=== PATIENT | male | born 1965 | race African-American/Black ===

== ENCOUNTER 2016-06-16 03:23 | Emergency (ER) | payer MEDICARE, OTHER ==
[2016-06-16] MEDS ORDERED: IPRATROPIUM/ALBUTEROL SULFATE 3 ML AMPUL.NEB NEB ONE (04:08)
--- NOTE | 2016-06-16 04:09 | ED Physician Documentation ---
General Adult - HISTORIAN Historian: patient - HPI Stated Complaint: fever, dizzy, h/a Chief Complaint: General Adult Onset: days ago (2) Timing: still present Severity: moderate Further Comments: yes (Pt is a 50 yo male with cough, dizziness, malaise x 2 days. Pt was seen by pcp and started on amoxicillin, but is not feeling better. ) - ROS CONST: other (malaise) EYES/ENT: none CVS/RESP: cough GI/: none MS/SKIN/LYMPH: none NEURO/PSYCH: headache - PAST HX Past History: other (asthma, DM, GERD, HTN) Allergies/Adverse Reactions: Allergies Allergy/AdvReac Type Severity Reaction Status Date / Time No Known Allergies Allergy Verified 06/16/16 03:44 Home Medications: Ambulatory Orders Medication Instructions Recorded Lisinopril [Lisinopril] 20 tab PO BID 07/26/12 Metformin HCl [GLUCOPHAGE] 500 mg PO BID 07/26/12 Fenofibrate [Fenofibrate] 145 mg PO DAILY 09/21/13 Albuterol Sulfate [Proair HFA] 1 unit INH DIRECTED 09/17/14 Montelukast Sodium [Singulair] 1 tab PO DAILY 09/17/14 Tiotropium [place] [Spiriva] 1 puff INH DIRECTED 09/17/14 Allopurinol [Zyloprim] 450 mg PO DAILY u2 07/11/15 Fluticasone/Salmeterol [Advair 1 each IH BID 07/11/15 500-50 Diskus] Gabapentin [Neurontin] 300 mg PO TID 01/19/16 Omeprazole [Prilosec] 40 mg PO 01/19/16 traMADol HCL [Ultram] 50 mg PO Q6H #30 tablet 05/01/16 Azithromycin [Zithromax] 250 mg PO DAILY #5 tablet 06/16/16 - SOCIAL HX Smoking History: cigarettes - FAMILY HX Family History: No - VITAL SIGNS Vital Signs: Vital Signs Temp Pulse Resp BP Pulse Ox 99.6 F 99 H 20 140/89 94 06/16/16 03:23 06/16/16 03:23 06/16/16 03:23 06/16/16 03:23 06/16/16 03:23 - REVIEWED ASSESSMENTS Nursing Assessment Reviewed: Yes Vitals Reviewed: Yes Progress - Progress Progress: NS 1 L IVF x 2 Duoneb HFN Toradol 30 mg IV Azithromycin 500 mg po x 1 Rx Azithromycin 250 mg po qd x 5 days. - EKG/XRAY/CT XRAY: chest (no acute process) ED Results Lab/Radiology - Orders Orders: ED Orders Category Date Time Status Place Saline Lock/IV Now Care 06/16/16 04:07 Active CHEST 2 VIEW [CHEST P.A.&LAT 2 VIEWS] [RAD] Stat Exams 06/16/16 Ordered CBC/PLATELET/DIFF Routine Lab 06/16/16 Ordered CMP Routine Lab 06/16/16 Ordered 0.9 % Sodium Chloride [Normal Saline] 1,000 ml Med 06/16/16 04:07 Active IV Q1H Ipratropium/Albuterol Sulfate [Duoneb] Med 06/16/16 04:07 Once 3 ml NEB NOW ONE General Adult Physical Exam - PHYSICAL EXAM GENERAL APPEARANCE: mild distress EENT: eye inspection normal, ENT inspection normal, pharynx normal NECK: normal inspection, supple RESPIRATORY: wheezes CVS: reg rate & rhythm, heart sounds normal ABDOMEN: soft, no organomegaly, normal bowel sounds BACK: normal inspection, no CVA tenderness SKIN: warm/dry, normal color EXTREMITIES: non-tender, normal range of motion, no evidence of injury NEURO: oriented X3, motor nml, sensation nml Discharge Clincal Impression: Hyponatremia URI (upper respiratory infection) Qualifiers: URI type: unspecified URI Qualified Code(s): J06.9 - Acute upper respiratory infection, unspecified Prescriptions: Azithromycin [Zithromax] 250 mg PO DAILY #5 tablet Referrals: Tiburcio Chaparro DO [Primary Care Provider] - Home Medications: Ambulatory Orders Lisinopril [Lisinopril] 20 tab PO BID 07/26/12 Metformin HCl [GLUCOPHAGE] 500 mg PO BID 07/26/12 Fenofibrate [Fenofibrate] 145 mg PO DAILY 09/21/13 Albuterol Sulfate [Proair HFA] 1 unit INH DIRECTED 09/17/14 Montelukast Sodium [Singulair] 1 tab PO DAILY 09/17/14 Tiotropium [place] [Spiriva] 1 puff INH DIRECTED 09/17/14 Allopurinol [Zyloprim] 450 mg PO DAILY u2 07/11/15 Fluticasone/Salmeterol [Advair 500-50 Diskus] 1 each IH BID 07/11/15 Gabapentin [Neurontin] 300 mg PO TID 01/19/16 Omeprazole [Prilosec] 40 mg PO 01/19/16 traMADol HCL [Ultram] 50 mg PO Q6H #30 tablet 05/01/16 Azithromycin [Zithromax] 250 mg PO DAILY #5 tablet 06/16/16 Condition: Good Disposition: 01 HOME, SELF-CARE Decision to Admit: NO Decision Time: 06:29
[2016-06-16] MEDS: IPRATROPIUM/ALBUTEROL SULFATE 3 ML AMPUL.NEB NEB ONE (04:20)
[2016-06-16] MEDS: 0.9 % SODIUM CHLORIDE 1,000 ML IV ONE ×2 (04:30→05:53)
[2016-06-16] MEDS ORDERED: KETOROLAC TROMETHAMINE 30 MG/1ML VIAL ONE (04:51)
[2016-06-16] MEDS: KETOROLAC TROMETHAMINE 30 MG/1ML VIAL IVP ONE (04:55)
[2016-06-16 05:11] LABS: BASOPHILS % 0.4 (0.0-1.5); EOSINOPHILS % 1.3 % (0.0-6.8); LYMPHOCYTES # 0.5 # k/uL (0.6-4.0); MEAN CORPUSCULAR HEMOGLOBIN 27.2 pg (28.0-34.0); MONOCYTES # 0.4 # k/uL (0.0-0.9); MONOCYTES % 9.6 % (0.0-11.0); NEUTROPHILS # 3.2 # k/uL (1.4-7.7)
[2016-06-16 05:22] LABS: eGFR (African) > 60; eGFR (Non-African) > 60
[2016-06-16] MEDS: AZITHROMYCIN 250 MG TABLET PO ONE (06:38)
[2016-06-16 07:06] VITALS: BP 140/82
--- NOTE | 2016-06-16 08:00 | Diagnostic Imaging Report ---
[facility] [address] [facility].[address] [address] ~ ~ ~ ~ Report Submission Date: Jun 16, 2016 5:01:17 AM REPAIR DEPARTMENT SUPERVISOR Patient ~ Study Name: CHI GRAHAM ~ Date: Jun 16, 2016 4:42:11 AM REPAIR DEPARTMENT SUPERVISOR ~ Modality Type: CR Gender: M ~ Description: CHEST : 63 ~ Institution: [facility] Physician: ISIS CALHOUN ~ ~ ~ ~ Chest - two views Clinical history: ~Productive cough. ~Shortness of breath and dizziness. Findings: ~Examination of the chest in PA and lateral views with comparison to examination of 09/17/2014 demonstrates lungs to be hyperinflated but clear. ~ Cardiovascular and mediastinal silhouettes are stable. ~The bony thorax is intact. ~The lungs are mildly hyperinflated. Impression: 1. ~Hyperinflation. 2. ~No active disease. 3. ~No significant change. ~ Electronically signed on Jun 16, 2016 5:01:17 AM REPAIR DEPARTMENT SUPERVISOR by: Primo SCHULER
== END 2016-06-16 06:42 | disposition home or self-care (01) ==
LOC: ED 03:23
DX: J06.9 Acute upper respiratory infection, unspecified (principal); E87.1 Hypo-osmolality and hyponatremia
CPT/HCPCS: 71020; 80053; 85025; J1885; J7030; 96361; 96374; 99283; S1016

== ENCOUNTER 2016-09-06 18:47 | Emergency (ER) | payer MEDICARE, OTHER ==
[2016-09-06] MEDS ORDERED: IPRATROPIUM/ALBUTEROL SULFATE 3 ML AMPUL.NEB NEB ONE ×2 (19:02→19:04)
[2016-09-06 21:06] LABS: BASOPHILS % 0.7 (0.0-1.5); EOSINOPHILS % 6.2 % (0.0-6.8); LYMPHOCYTES # 1.4 # k/uL (0.6-4.0); MEAN CORPUSCULAR HEMOGLOBIN 27.3 pg (28.0-34.0); MONOCYTES # 0.3 # k/uL (0.0-0.9); MONOCYTES % 5.7 % (0.0-11.0); NEUTROPHILS # 3.6 # k/uL (1.4-7.7)
--- NOTE | 2016-09-06 21:10 | ED Physician Documentation ---
Upper Respiratory Symptoms - HISTORIAN Historian: patient - HPI Chief Complaint: Cough/ Upper Respiratory Onset: days ago Context: denies: recent foreign travel, insect bite(s), tick(s), recent chemotherapy Associated Symptoms: fever, chills, sinus drainage, productive cough, hurts to breathe. denies: sweating, sore throat Further Comments: yes (51 year old male patient presents with complaint of productive cough, congestion) - ROS CONST/EYES: denies: weakness, eye redness CVS/RESP: shortness of breath. denies: chest pain, palpitations LYMPH: denies: leg swelling, rash GI/: none NEURO/PSYCH: denies: fainting, dizziness MS/SKIN: denies: muscle aches - PAST HX Lung Disease: COPD PE Risk Factors: hypertension Other History: diabetes Type 2, other (HLD, NIDDM) Allergies/Adverse Reactions: Allergies Allergy/AdvReac Type Severity Reaction Status Date / Time No Known Allergies Allergy Verified 06/16/16 03:44 Home Medications: Ambulatory Orders Medication Instructions Recorded Lisinopril [Lisinopril] 20 tab PO BID 07/26/12 Metformin HCl [GLUCOPHAGE] 500 mg PO BID 07/26/12 Fenofibrate [Fenofibrate] 145 mg PO DAILY 09/21/13 Albuterol Sulfate [Proair HFA] 1 unit INH DIRECTED 09/17/14 Montelukast Sodium [Singulair] 1 tab PO DAILY 09/17/14 Tiotropium [place] [Spiriva] 1 puff INH DIRECTED 09/17/14 Allopurinol [Zyloprim] 450 mg PO DAILY u2 07/11/15 Fluticasone/Salmeterol [Advair 1 each IH BID 07/11/15 500-50 Diskus] Gabapentin [Neurontin] 300 mg PO TID 01/19/16 Omeprazole [Prilosec] 40 mg PO 01/19/16 traMADol HCL [Ultram] 50 mg PO Q6H #30 tablet 05/01/16 Azithromycin [Zithromax] 250 mg PO DAILY #5 tablet 06/16/16 - SOCIAL HX Smoking History: cigarettes - FAMILY HX Family History: cardiac disease - VITAL SIGNS Vital Signs: Vital Signs Temp Pulse Resp BP Pulse Ox 140/82 06/16/16 06:47 - REVIEWED ASSESSMENTS Nursing Assessment Reviewed: Yes Vitals Reviewed: Yes Progress - Progress Progress: Duoneb given on arrival Reviewed lab and xray results with patient. Treated with solumedrol and azithromycin in ER. Added duonebs q6h, continue prednisone. Patient states he has plenty of albuterol. albuterol neb given at discharge. ED Results Lab/Radiology - Lab Results Lab Results: Lab Results 09/06/16 09/06/16 21:00 21:00 WBC 5.80 K/ul K/ul (4.00-12.00) RBC 4.69 M/ul M/ul (3.90-5.20) Hgb 12.8 g/dL g/dL (12.0-18.0) Hct 39.9 % % (37.0-53.0) MCV 85.2 fl fl (80.0-100.0) MCH 27.3 pg L pg (28.0-34.0) MCHC 32.0 g/dL g/dL (30.0-36.0) RDW 15.1 % H % (11.3-14.3) Plt Count 301 K/mm3 K/mm3 (130-400) Neut % (Auto) 61.6 % % (39.0-79.0) Lymph % (Auto) 24.4 % % (16.0-50.0) [place] % (Auto) 5.7 % % (0.0-11.0) Eos % (Auto) 6.2 % % (0.0-6.8) Baso % (Auto) 0.7 (0.0-1.5) Neut # 3.6 # k/uL # k/uL (1.4-7.7) Lymph # 1.4 # k/uL # k/uL (0.6-4.0) [place] # 0.3 # k/uL # k/uL (0.0-0.9) Eos # 0.4 # k/uL # k/uL (0.0-0.6) Baso # 0.0 # k/uL # k/uL (0.0-0.5) Reactive Lymphs % 1.4 % % (0.0-5.0) Reactive Lymphs # 0.1 # k/uL # k/uL (0.0-0.8) Sodium 142 mmol/L mmol/L (136-145) Potassium 3.7 mmol/L mmol/L (3.5-5.0) Chloride 103 mmol/L mmol/L (98-110) Carbon Dioxide 33 mmol/L H mmol/L (20-32) BUN 8 mg/dL L mg/dL (10-26) Creatinine 1.1 mg/dL mg/dL (0.4-1.5) Est GFR ( Amer) > 60 (60 - ) Est GFR (Non-Af Amer) > 60 (60 - ) Glucose 118 mg/dL H mg/dL (70-99) Calcium 9.3 mg/dL mg/dL (8.5-10.5) Total Bilirubin 0.3 mg/dL mg/dL (0.2-1.2) AST 21 U/L U/L (0-41) ALT 18 U/L U/L (0-45) Alkaline Phosphatase 50 U/L U/L (46-116) Total Protein 7.7 g/dL g/dL (6.0-8.5) Albumin 4.4 g/dL g/dL (3.0-5.5) - Radiology Radiology Impressions: Chest, PA and lateral, 3 images History: Cough, dyspnea Findings: No infiltrate, effusion or pneumothorax is present. Heart size, mediastinum and pulmonary vascularity are normal. The lungs are hyperinflated. 16 June 2016, no significant change has occurred. Impression: No active disease. Electronically signed on Sep 06, 2016 7:34:15 PM CDT by: Harry Hussein - Orders Orders: ED Orders Category Date Time Status Continuous Pulse Oximetry Q30M Care 09/06/16 19:[address] Saline Lock/IV NOW Care 09/06/16 19:03 Active CHEST 2 VIEW [CHEST P.A.&LAT 2 VIEWS] [RAD] Stat Exams 09/06/16 Completed CBC/PLATELET/DIFF Stat Lab 09/06/16 21:00 Completed CMP Stat Lab 09/06/16 21:00 Completed INFLUENZA A&B Stat Lab 09/06/16 20:40 Ordered Albuterol Sulfate [Ventolin] Med 09/06/16 21:20 Discontinued 2.5 mg NEB NOW ONE Azithromycin [Zithromax] Med 09/06/16 21:12 Discontinued 500 mg PO NOW ONE Ipratropium/Albuterol Sulfate [Duoneb] Med 09/06/16 19:02 Discontinued 3 ml NEB .STK-MED ONE Ipratropium/Albuterol Sulfate [Duoneb] Med 09/06/16 19:04 Discontinued 3 ml NEB NOW ONE methylPREDNISolone SOD SUCC [Solu-MEDROL] Med 09/06/16 21:11 Discontinued 62.5 mg IVP NOW ONE Upper Respiratory Symptoms - EXAM General Appearance: moderate distress EENT: eyes nml inspection, nml ENT inspection, lids & conjunct. nml, PERRL, ear nml, nose nml, pharynx nml, airway nml Respiratory: no resp. 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 Increase your albuterol nebs to every 4 hours as needed at home. Tomorrow you will start a new neb with 2 medication, use them every 6 hours. Continue the albuterol between the ipratropium/albuterol nebs Start your antibiotic and steroid tomorrow. Return to the Er if your symptoms become worse. Home Medications: Ambulatory Orders Lisinopril [Lisinopril] 20 tab PO BID 07/26/12 Metformin HCl [GLUCOPHAGE] 500 mg PO BID 07/26/12 Fenofibrate [Fenofibrate] 145 mg PO DAILY 09/21/13 Albuterol Sulfate [Proair HFA] 1 unit INH DIRECTED 09/17/14 Montelukast Sodium [Singulair] 1 tab PO DAILY 09/17/14 Tiotropium [place] [Spiriva] 1 puff INH DIRECTED 09/17/14 Allopurinol [Zyloprim] 450 mg PO DAILY u2 07/11/15 Fluticasone/Salmeterol [Advair 500-50 Diskus] 1 each IH BID 07/11/15 Gabapentin [Neurontin] 300 mg PO TID 01/19/16 Omeprazole [Prilosec] 40 mg PO 01/19/16 traMADol HCL [Ultram] 50 mg PO Q6H #30 tablet 05/01/16 Azithromycin [Zithromax] 250 mg PO DAILY #5 tablet 06/16/16 Condition: Stable Disposition: 01 HOME, SELF-CARE Decision to Admit: NO Decision Time: 21:25
[2016-09-06] MEDS ORDERED: methylPREDNISolone SOD SUCC 125 MG/2 ML VIAL IVP ONE (21:11)
[2016-09-06] MEDS ORDERED: AZITHROMYCIN 250 MG TABLET PO ONE (21:12)
[2016-09-06 21:20] LABS: eGFR (African) > 60; eGFR (Non-African) > 60
[2016-09-06] MEDS ORDERED: ALBUTEROL SULFATE 2.5 MG/3 ML AMPUL.NEB NEB ONE (21:20)
--- NOTE | 2016-09-06 22:40 | Diagnostic Imaging Report ---
BREEZY ROBLERO (LISBETH) - ER~ [facility] [address] [address] ~ ~ ~ ~ Report Submission Date: Sep 06, 2016 7:34:15 PM CDT Patient ~ Study Name: CHI GRAHAM ~ Date: Sep 06, 2016 7:11:01 PM CDT ~ Modality Type: CR Gender: M ~ Description: CHEST : 63 ~ Institution: [facility] Physician: BREEZY ROBLERO) - KRISTINA ~ ~ ~ ~ Chest, PA and lateral, 3 images History: Cough, dyspnea Findings: No infiltrate, effusion or pneumothorax is present. Heart size, mediastinum and pulmonary vascularity are normal. The lungs are hyperinflated. 16 June 2016, no significant change has occurred. Impression: No active disease. ~ Electronically signed on Sep 06, 2016 7:34:15 PM CDT by: Harry SCHULER
[2016-09-07 03:45] VITALS: BP 135/81
== END 2016-09-06 21:34 | disposition home or self-care (01) ==
LOC: ED 18:47
DX: J44.1 Chronic obstructive pulmonary disease with (acute) exacerbation (principal)
CPT/HCPCS: 71020; 80053; 85025; 87400; 96374; 99283; 99284; J2930; S1016

== ENCOUNTER 2016-12-07 18:30 | Emergency (ER) | payer MEDICARE, OTHER ==
[2016-12-07] MEDS ORDERED: BACLOFEN 10 MG TABLET PO ONE (18:51)
--- NOTE | 2016-12-07 18:56 | ED Physician Documentation ---
Low Back Pain - HISTORIAN Historian: patient - HPI Chief Complaint: Low Back Pain/ Injury History: history of chronic pain:, back pain Onset: days ago Duration: worse Recent Injury: No Context: turning (new mattress) Where: home Severity: severe Quality: sharp, similar- prior back pain Worsened By:: upright position, movement to RT flexion, movement to LT flexion Relieved By: nothing Further Comments: yes (51 year old male patient presents with neck pain, left shoulder pain, and right low back pain. Reports chronic pain worse after rearranaging bedroom. Has not taken any OTC medications. Requested antibiotic for cough.) - ROS CONST: no problems CVS/RESP: none EYES/ENT: none MS/SKIN/LYMPH: none Neuro/Psych: none GI/: denies: abdominal pain - PAST HX Past History: back pain Other History: diabetes Type 2, hypertension, other (COPD, HLD, ) Allergies/Adverse Reactions: Allergies Allergy/AdvReac Type Severity Reaction Status Date / Time No Known Allergies Allergy Verified 09/07/16 03:48 Home Medications: Ambulatory Orders Medication Instructions Recorded Lisinopril [Lisinopril] 20 tab PO BID 07/26/12 Metformin HCl [GLUCOPHAGE] 500 mg PO BID 07/26/12 Fenofibrate [Fenofibrate] 145 mg PO DAILY 09/21/13 Albuterol Sulfate [Proair HFA] 1 unit INH DIRECTED 09/17/14 Montelukast Sodium [Singulair] 1 tab PO DAILY 09/17/14 Tiotropium [place] [Spiriva] 1 puff INH DIRECTED 09/17/14 Allopurinol [Zyloprim] 450 mg PO DAILY u2 07/11/15 Fluticasone/Salmeterol [Advair 1 each IH BID 07/11/15 500-50 Diskus] Gabapentin [Neurontin] 300 mg PO TID 01/19/16 Omeprazole [Prilosec] 40 mg PO D 01/19/16 traMADol HCL [Ultram] 50 mg PO Q6H #30 tablet 05/01/16 - SOCIAL HX Smoking History: cigarettes - FAMILY HX Family History: denies: none - VITAL SIGNS Vital Signs: Vital Signs Temp Pulse Resp BP Pulse Ox 135/81 09/06/16 21:50 - REVIEWED ASSESSMENTS Nursing Assessment Reviewed: Yes Vitals Reviewed: Yes ED Results Lab/Radiology - Orders Orders: ED Orders Category Date Time Status Baclofen [Lioresal] Med 12/07/16 18:51 Discontinued 10 mg PO NOW ONE Baclofen [Lioresal] Med 12/07/16 18:51 Discontinued 10 mg PO NOW ONE Ketorolac Tromethamine [Toradol] Med 12/07/16 18:45 Discontinued 60 mg IM NOW ONE Low Back Pain/Injury - Physical Exam General Appearance: mild distress EENT: eye inspection normal, ABNER Resp/CVS: chest non-tender, breath sounds nml, heart sounds nml, no resp. distress, lungs clear, reg. rate & rhythm, other (no cough in ER) Abdomen: non-tender, no organomegaly, no pulsatile mass Back: muscle spasm (right paraspinous muscles). No: vertebral point-tendernes Straight Leg Raising: Positive Right Neuro/Psych: oriented x3, motor nml, sensation nml, bilat. 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 Discharge Clincal Impression: Low back pain Qualifiers: Chronicity: acute Back pain laterality: right Sciatica presence: without sciatica Qualified Code(s): M54.5 - Low back pain Referrals: Aye Lange MD [Primary Care Provider] - 2 Days Home Medications: Ambulatory Orders Lisinopril [Lisinopril] 20 tab PO BID 07/26/12 Metformin HCl [GLUCOPHAGE] 500 mg PO BID 07/26/12 Fenofibrate [Fenofibrate] 145 mg PO DAILY 09/21/13 Albuterol Sulfate [Proair HFA] 1 unit INH DIRECTED 09/17/14 Montelukast Sodium [Singulair] 1 tab PO DAILY 09/17/14 Tiotropium [place] [Spiriva] 1 puff INH DIRECTED 09/17/14 Allopurinol [Zyloprim] 450 mg PO DAILY u2 07/11/15 Fluticasone/Salmeterol [Advair 500-50 Diskus] 1 each IH BID 07/11/15 Gabapentin [Neurontin] 300 mg PO TID 01/19/16 Omeprazole [Prilosec] 40 mg PO D 01/19/16 traMADol HCL [Ultram] 50 mg PO Q6H #30 tablet 05/01/16 Condition: Stable Disposition: 01 HOME, SELF-CARE Decision to Admit: NO Decision Time: 18:55
[2016-12-07] MEDS: KETOROLAC TROMETHAMINE 60 MG/2 ML VIAL IM ONE (19:05)
[2016-12-07] MEDS: BACLOFEN 10 MG TABLET PO ONE (19:11)
[2016-12-07 20:06] VITALS: BP 146/90
== END 2016-12-07 19:05 | disposition home or self-care (01) ==
LOC: ED 18:30
DX: M54.5 Low back pain (principal)
CPT/HCPCS: 96372; 99283; J1885

== ENCOUNTER 2017-02-27 18:12 | Emergency (ER) | payer MEDICARE, OTHER ==
--- NOTE | 2017-02-27 19:19 | Diagnostic Imaging Report ---
ANÍBAL ABDALLA [facility] [address] [facility].[address] [address] Report Submission Date: Feb 27, 2017 7:16:09 PM CDT Patient Study Name: CHI GRAHAM Date: Feb 27, 2017 6:51:02 PM CDT Modality Type: CR Gender: M Description: LOWER EXTREMITY : 63 Institution: [facility] Physician: ANÍBAL ABDALLA Right knee, AP, lateral and sunrise views History: Knee pain, injury Findings: Joint space narrowing is present in the medial, lateral and patellofemoral compartments. There is spur formation at the distal femur, proximal tibia and patella. There is no fracture, dislocation or abnormal bone destruction. Impression: Osteoarthritis but no acute abnormality. Electronically signed on Feb 27, 2017 7:16:09 PM CDT by: Harry SCHULER
--- NOTE | 2017-02-27 19:20 | Diagnostic Imaging Report ---
ANÍBAL ABDALLA [facility] [address] [facility].[address] [address] Report Submission Date: Feb 27, 2017 7:14:42 PM CDT Patient Study Name: CHI GRAHAM Date: Feb 27, 2017 6:52:12 PM CDT Modality Type: CR Gender: M Description: SPINE : 63 Institution: [facility] Physician: ANÍBAL ABDALLA Lumbar spine, AP and lateral, 3 images History: Low back pain Findings: No fracture, subluxation or abnormal bone production or destruction is identified. The vertebral bodies and intervertebral disc spaces are of normal height. Anterior osteophyte formation is noted at all levels. Impression: Degenerative change but no acute abnormality. Electronically signed on Feb 27, 2017 7:14:42 PM CDT by: Harry SCHULER
--- NOTE | 2017-02-27 19:43 | ED Physician Documentation ---
Lower Extremity Injury - HISTORIAN Historian: patient - HPI Stated Complaint: Lat. Rt Knee pain/LBP/recent incr. in cough Chief Complaint: Lower Extremity Injury Additional Information: tool fell against right knee, sprained back Onset: days ago (1) Where: home Severity: moderate Context: direct blow, other (bending gardening) Associated Symptoms:: swelling (mild right knee) Modifying Factors:: pain on movement - ROS CONST: no problems CVS/RESP: none GI/: denies: problems urinating, nausea, vomiting MS/SKIN/LYMPH: back pain NEURO: denies: headache, head injury - PAST HX Past History: diabetes Type 2, other (asthma, htn) Immunizations: referred to PCP Allergies/Adverse Reactions: Allergies Allergy/AdvReac Type Severity Reaction Status Date / Time No Known Allergies Allergy Verified 02/27/17 18:45 Home Medications: Ambulatory Orders Medication Instructions Recorded Metformin HCl [GLUCOPHAGE] 500 mg PO BID 07/26/12 Fenofibrate [Fenofibrate] 145 mg PO DAILY 09/21/13 Albuterol Sulfate [Proair HFA] 1 unit INH DIRECTED 09/17/14 Montelukast Sodium [Singulair] 1 tab PO DAILY 09/17/14 Allopurinol [Zyloprim] 450 mg PO DAILY u2 07/11/15 Fluticasone/Salmeterol [Advair 1 each IH BID 07/11/15 500-50 Diskus] Gabapentin [Neurontin] 300 mg PO TID 01/19/16 Omeprazole [Prilosec] 40 mg PO D 01/19/16 Fluticasone/Salmeterol [Advair 02/27/17 250-50 Diskus] - SOCIAL HX Smoking History: cigarettes Alcohol Use: none Drug Use: none - FAMILY HX Family History: no significant history - VITAL SIGNS Vital Signs: Vital Signs Temp Pulse Resp BP Pulse Ox 98.9 F 81 18 166/96 97 02/27/17 18:13 02/27/17 19:53 02/27/17 19:53 02/27/17 19:53 02/27/17 19:53 - REVIEWED ASSESSMENTS Nursing Assessment Reviewed: Yes Vitals Reviewed: Yes Progress - Results/Orders Results/Orders: right knee and l-spine x-rays ordered - Progress Progress: pt. given 60 mg toradol and 60 mg norflex im in er Critical Care Note - Critical Care Note Total Time (mins): 0 ED Results Lab/Radiology - Lab Results Lab Results: none taken - Radiology Radiology Impressions: x-ray right knee shows spurs, no fx, l-spine x-rays show bone spurs, no fx - Orders Orders: ED Orders Category Date Time Status KNEE 3 VIEWS [RAD] Stat Exams 02/27/17 Completed L SPINE 2 OR 3 VIEWS [RAD] Stat Exams 02/27/17 Completed Ketorolac Tromethamine [Toradol] Med 02/27/17 19:43 Discontinued 60 mg IM NOW ONE Orphenadrine Citrate [Norflex] Med 02/27/17 19:43 Discontinued 60 mg IM NOW ONE Lower Extremities Injury Phy - Physical Exam General Appearance: alert, moderate distress Hips: bilateral hip: non-tender, normal inspection, normal range of motion, no evidence of injury Legs: bilateral: non-tender, normal inspection, normal range of motion, no evidence of injury Knees: right: bone tenderness (lateral aspect), other (no ligament laxity or deformity) Ankle: bilateral: non-tender, normal inspection, normal range of motion, no evidence of injury Foot: bilateral foot: non-tender, normal inspection, normal range of motion, no evidence of injury DTR - Lower Extremities: knee (R): 2+, knee (L): 2+, ankle (R): 2+, ankle (L): 2 + Ligaments: No: laxity on anterior drawer, laxity on posterior drawe, laxity on medial stress, laxity on lateral stress Gait: limited by pain Neuro/Vascular/Tendon: no vascular compromise, motor nml, sensation nml, abnml warmth (warm knee lat aspect). No: abnml color Head/ENT: nml inspection Neck/Back: nml inspection Resp/CVS: chest non-tender, breath sounds nml, heart sounds nml, no resp. distress, lungs clear, reg. rate & rhythm Abdomen: non-tender, pelvis stable Discharge Clincal Impression: Contusion, knee Qualifiers: Encounter type: initial encounter Laterality: right Qualified Code(s): S80.01XA - Contusion of right knee, initial encounter Lumbar strain Qualifiers: Encounter type: initial encounter Qualified Code(s): S39.012A - Strain of muscle, fascia and tendon of lower back, initial encounter Referrals: Aye Lange MD [Primary Care Provider] - 2 Days Comments: Discharged home in stable condition with script for medrol dose pack #1 as directed and parafon forte dsc 500 mg p.o. qid #20 Condition: Stable Disposition: 01 HOME, SELF-CARE Decision to Admit: NO Decision Time: 19:43
[2017-02-27] MEDS: ORPHENADRINE CITRATE 60 MG/2ML IM ONE (19:51)
[2017-02-27] MEDS: KETOROLAC TROMETHAMINE 60 MG/2 ML VIAL IM ONE (19:51)
[2017-02-27 19:55] VITALS: BP 166/96
== END 2017-02-27 19:50 | disposition home or self-care (01) ==
LOC: ED 18:12
DX: S80.01XA Contusion of right knee, initial encounter (principal); S39.012A Strain of muscle, fascia and tendon of lower back, initial encounter; X58.XXXA Exposure to other specified factors, initial encounter; Y93.9 Activity, unspecified; Y99.9 Unspecified external cause status
CPT/HCPCS: 72100; 73562; J1885; J2360; 96372; 99283

== ENCOUNTER 2017-05-26 14:48 | Emergency (ER) | payer MEDICARE, OTHER ==
[2017-05-26 15:12] VITALS: BP 147/83
[2017-05-26] MEDS ORDERED: KETOROLAC TROMETHAMINE 60 MG/2 ML VIAL IM ONE (15:27)
--- NOTE | 2017-05-26 16:43 | ED Physician Documentation ---
General Adult - HPI Stated Complaint: knee pain Chief Complaint: General Adult Onset: days ago Timing: worse Further Comments: yes (51 year old male patient presents with complaint of left knee pain "feels like my gout". C/O sore throat, productive cough and yellow nasal drainage x 2 days.) - ROS CONST: no problems EYES/ENT: none CVS/RESP: none GI/: none MS/SKIN/LYMPH: none NEURO/PSYCH: denies: headache - PAST HX Past History: COPD, hypertension Other History: diabetes Type 2, other (gout) Allergies/Adverse Reactions: Allergies Allergy/AdvReac Type Severity Reaction Status Date / Time No Known Allergies Allergy Verified 05/26/17 15:12 Home Medications: Ambulatory Orders Medication Instructions Recorded Metformin HCl [GLUCOPHAGE] 500 mg PO BID 07/26/12 Fenofibrate [Fenofibrate] 145 mg PO DAILY 09/21/13 Albuterol Sulfate [Proair HFA] 1 unit INH DIRECTED 09/17/14 Montelukast Sodium [Singulair] 1 tab PO DAILY 09/17/14 Allopurinol [Zyloprim] 450 mg PO DAILY u2 07/11/15 Fluticasone/Salmeterol [Advair 1 each IH BID 07/11/15 500-50 Diskus] Gabapentin [Neurontin] 300 mg PO TID 01/19/16 Omeprazole [Prilosec] 40 mg PO D 01/19/16 Fluticasone/Salmeterol [Advair 02/27/17 250-50 Diskus] Azithromycin [Zithromax] 250 mg PO DAILY #5 tablet 05/26/17 Ketorolac Tromethamine [Toradol] 10 mg PO TID #15 tablet 05/26/17 - SOCIAL HX Smoking History: cigarettes - FAMILY HX Family History: No - VITAL SIGNS Vital Signs: Vital Signs Temp Pulse Resp BP Pulse Ox 97.9 F 90 16 147/83 95 05/26/17 14:52 05/26/17 15:51 05/26/17 15:51 05/26/17 15:51 05/26/17 15:51 - REVIEWED ASSESSMENTS Nursing Assessment Reviewed: Yes Vitals Reviewed: Yes Progress - Progress Progress: Patient does not want lab or xray, states he has to be in court at 1600. Will treat with po medications. ED Results Lab/Radiology - Orders Orders: ED Orders Category Date Time Status Ketorolac Tromethamine [Toradol] Med 05/26/17 15:27 Discontinued 60 mg IM NOW ONE General Adult Physical Exam - PHYSICAL EXAM GENERAL APPEARANCE: mild distress EENT: eye inspection normal, pharynx normal, no signs of dehydration, ABNER, no nystagmus, TM's nml, pharyngeal erythema, purulent nasal drainage RESPIRATORY: no resp distress, chest non-tender, breath sounds normal CVS: reg rate & rhythm, heart sounds normal, equal pulses, no murmur, no gallop , PMI nml, no JVD, no friction rub, 24 ABDOMEN: soft, no organomegaly, normal bowel sounds, no abdominal bruit, no distension SKIN: normal color, warm/dry, NR, INT, PAL, DR EXTREMITIES: non-tender, normal range of motion, no evidence of injury, no edema , other (left knee pain with palpation) NEURO: oriented X3, CN's nml as tested, motor nml, sensation nml, mood/affect nml Discharge Clincal Impression: History of gout URI (upper respiratory infection) Qualifiers: URI type: acute pharyngitis Pharyngitis/tonsillitis etiology: unspecified etiology Qualified Code(s): J02.9 - Acute pharyngitis, unspecified Left knee pain Qualifiers: Chronicity: acute Qualified Code(s): M25.562 - Pain in left knee Prescriptions: Azithromycin [Zithromax] 250 mg PO DAILY #5 tablet Ketorolac Tromethamine [Toradol] 10 mg PO TID #15 tablet Referrals: Aye Lange MD [Primary Care Provider] - 2 Days Additional Instructions: Diagnosis: Upper Respiratory Infection Knee Pain office support clerk your prescriptions and start them tomorrow. Condition: Stable Disposition: 01 HOME, SELF-CARE Decision to Admit: NO Decision Time: 15:45
== END 2017-05-26 15:40 | disposition home or self-care (01) ==
LOC: ED 14:48
DX: J02.9 Acute pharyngitis, unspecified (principal); M25.562 Pain in left knee
CPT/HCPCS: 96372; 99283; J1885

== ENCOUNTER 2017-08-17 14:01 | Emergency (ER) | payer MEDICARE, OTHER ==
[2017-08-17 14:27] VITALS: BP 138/87
[2017-08-17] MEDS: IPRATROPIUM/ALBUTEROL SULFATE 3 ML AMPUL.NEB NEB ONE ×2 (14:32→14:36)
--- NOTE | 2017-08-17 14:36 | ED Physician Documentation ---
Upper Respiratory Symptoms - HISTORIAN Historian: patient, spouse - HPI Stated Complaint: cough, SOA Chief Complaint: Cough/ Upper Respiratory Additional Information: recurrent copd bronchitis sinusitis headachefever ache all over. had similar few weeks ago steroid and z pack helped Onset: days ago (1) Duration: intermittent episodes Severity: moderate Associated Symptoms: fever, chills, runny nose, sinus pain, sinus drainage, sore throat Worsened by Deep Breath: Yes (freq prod cough) - ROS CONST/EYES: denies: weakness, eye redness CVS/RESP: shortness of breath, other (cough prod brownish greenish mucoid). denies: palpitations LYMPH: denies: leg swelling, rash - PAST HX Lung Disease: asthma, COPD, bronchiectasis, other (gout copd htn dm) Other History: diabetes Type 2 Surgeries/Procedures: other (knee) Immunizations: denies: influenza, pneumovax Allergies/Adverse Reactions: Allergies Allergy/AdvReac Type Severity Reaction Status Date / Time No Known Allergies Allergy Verified 08/17/17 14:03 Home Medications: Ambulatory Orders Medication Instructions Recorded Metformin HCl [GLUCOPHAGE] 500 mg PO BID 07/26/12 Fenofibrate [Fenofibrate] 145 mg PO DAILY 09/21/13 Albuterol Sulfate [Proair HFA] 1 unit INH DIRECTED 09/17/14 Montelukast Sodium [Singulair] 1 tab PO DAILY 09/17/14 Allopurinol [Zyloprim] 450 mg PO DAILY u2 07/11/15 Fluticasone/Salmeterol [Advair 1 each IH BID 07/11/15 500-50 Diskus] Gabapentin [Neurontin] 300 mg PO TID 01/19/16 Omeprazole [Prilosec] 40 mg PO D 01/19/16 Amoxicillin/Potassium Clav 1 each PO TID #30 tablet 08/17/17 [Augmentin 500-125 Tablet] predniSONE [Deltasone] 20 mg PO TID #20 tablet 08/17/17 - SOCIAL HX Smoking History: less than 1 pack/day Alcohol Use: heavy Drug Use: none - FAMILY HX Family History: no significant history - VITAL SIGNS Vital Signs: Vital Signs Temp Pulse Resp BP Pulse Ox 98.8 F 104 H 22 138/87 93 08/17/17 14:20 08/17/17 14:20 08/17/17 14:20 08/17/17 14:20 08/17/17 14:20 - REVIEWED ASSESSMENTS Nursing Assessment Reviewed: Yes Vitals Reviewed: Yes Progress - Results/Orders Results/Orders: thinks had reaction to depomedrol ED Results Lab/Radiology - Orders Orders: ED Orders Category Date Time Status Ipratropium/Albuterol Sulfate [Duoneb] Med 08/17/17 14:18 Discontinued 3 ml NEB .STK-MED ONE Ipratropium/Albuterol Sulfate [Duoneb] Med 08/17/17 14:31 Once 3 ml NEB NOW ONE Upper Respiratory Symptoms - EXAM General Appearance: moderate distress EENT: eyes nml inspection, PERRL. No: TM erythema Neck: normal inspection Respiratory: speaks full sentences, respiratory distress, prolonged expirations , wheezes, rales, rhonchi. No: no resp. distress Abdomen: non-tender CVS: reg rate & rhythm, heart sounds normal Skin: color nml, no rash, warm,dry Extremities: non-tender, normal range of motion Neuro/Psych: oriented x3, mood/affect nml Discharge Clincal Impression: acute exab copd, bronchitis sinusitis, nicotine etoh abuse Prescriptions: Amoxicillin/Potassium Clav [Augmentin 500-125 Tablet] 1 each PO TID #30 tablet predniSONE [Deltasone] 20 mg PO TID #20 tablet Referrals: Aye Lange MD [Primary Care Provider] - 2 Days Condition: Good Disposition: 01 HOME, SELF-CARE Decision to Admit: NO Decision Time: 14:41
[2017-08-17] MEDS: methylPREDNISolone SOD SUCC 125 MG/2 ML VIAL IM ONE (14:50)
== END 2017-08-17 14:56 | disposition home or self-care (01) ==
LOC: ED 14:01
DX: J44.1 Chronic obstructive pulmonary disease with (acute) exacerbation (principal); J40 Bronchitis, not specified as acute or chronic; F17.208 Nicotine dependence, unspecified, with other nicotine-induced disorders; J32.9 Chronic sinusitis, unspecified; F10.10 Alcohol abuse, uncomplicated
CPT/HCPCS: 94640; 96372; 99283; J2930

== ENCOUNTER 2017-11-01 13:51 | Emergency (ER) | payer MEDICARE, OTHER ==
[2017-11-01] MEDS ORDERED: ALBUTEROL SULFATE 2.5 MG/3 ML AMPUL.NEB NEB ONE (13:55)
[2017-11-01] MEDS ORDERED: IPRATROPIUM/ALBUTEROL SULFATE 3 ML AMPUL.NEB NEB ONE ×3 (13:59→15:20)
[2017-11-01] MEDS ORDERED: BUDESONIDE 0.5MG/2ML AMPUL.NEB NEB ONE ×2 (13:59→14:01)
[2017-11-01] MEDS ORDERED: methylPREDNISolone SOD SUCC 125 MG/2 ML VIAL IVP ONE (14:10)
--- NOTE | 2017-11-01 14:27 | ED Physician Documentation ---
General Adult - HISTORIAN Historian: patient - HPI Stated Complaint: SOA, rash Chief Complaint: General Adult Additional Information: Increasing SOB and thicker mucus when he coughs for 2 days. Can't smoke much 2/ 2 coughing paroxysms. Says ther are 2-3 other smokers in the house all the time. Pulse ox 85% on RA on arrival in the ER. Neb treatments at home. No fevers or sweats. Known asthmatic and COPD. - ROS CONST: denies: fever, sweating - PAST HX Past History: COPD, hypertension Allergies/Adverse Reactions: Allergies Allergy/AdvReac Type Severity Reaction Status Date / Time No Known Allergies Allergy Verified 11/01/17 14:02 Home Medications: Ambulatory Orders Medication Instructions Recorded Metformin HCl [GLUCOPHAGE] 500 mg PO BID 07/26/12 Fenofibrate [Fenofibrate] 145 mg PO DAILY 09/21/13 Albuterol Sulfate [Proair HFA] 1 unit INH DIRECTED 09/17/14 Montelukast Sodium [Singulair] 1 tab PO DAILY 09/17/14 Allopurinol [Zyloprim] 450 mg PO DAILY u2 07/11/15 Fluticasone/Salmeterol [Advair 1 each IH BID 07/11/15 500-50 Diskus] Gabapentin [Neurontin] 300 mg PO TID 01/19/16 Omeprazole [Prilosec] 40 mg PO D 01/19/16 Azithromycin [Zithromax] 250 mg PO DAILY #6 tablet 11/01/17 Ipratropium/Albuterol Sulfate 3 ml NEB Q6H #100 ampul.neb 11/01/17 [Duoneb] predniSONE [Deltasone] 40 mg PO QD #10 tablet 11/01/17 - SOCIAL HX Smoking History: cigarettes - FAMILY HX Family History: No - VITAL SIGNS Vital Signs: Vital Signs Temp Pulse Resp BP Pulse Ox 116 H 34 H 125/84 86 L 11/01/17 14:04 11/01/17 14:04 11/01/17 14:04 11/01/17 14:04 - REVIEWED ASSESSMENTS Nursing Assessment Reviewed: Yes Vitals Reviewed: Yes Progress - Progress Progress: Patient Study Name: CHI GRAHAM Date: November 01, 2017 2:32:00 PM CDT Modality Type: DX Gender: M Description: CHEST : 63 Institution: [facility] Physician: SAMMY MCKEON - Examination: PA and lateral chest. History: Evaluate lung mccord. SOA; WHEEZINSOA; WHEEZING X 2 DAYS; ITCHY RED RASH STARTED 1 DAY AGO (Hx) Comparison exam: 06 September 2016 Findings: PA lateral chest demonstrate a normal cardiac and mediastinal silhouette. Stable prominent hilar vasculature. No focal infiltrate. No blunting of the costophrenic margins. Osseous structures are appropriate for age. Impression: No acute appearing pulmonary process. Electronically signed on November 01, 2017 2:59:31 PM CDT by: Joe Tompkins about Cr 1.4. BP meds dosages increased 2 months ago. Feels much better after nebs. ED Results Lab/Radiology - Orders Orders: ED Orders Category Date Time Status Place IV Lock 1T Care 11/01/17 14:10 Ordered CHEST 2VIEW [RAD] Stat Exams 11/01/17 Ordered CBC/PLATELET/DIFF Routine Lab 11/01/17 Ordered CMP [CMP] Routine Lab 11/01/17 Ordered Albuterol Sulfate [Ventolin] Med 11/01/17 13:55 Discontinued 2.5 mg NEB NOW ONE Budesonide [Pulmicort] Med 11/01/17 13:59 Discontinued 0.5 mg NEB .STK-MED ONE Budesonide [Pulmicort] Med 11/01/17 14:01 Discontinued 0.5 mg NEB BID ONE Ipratropium/Albuterol Sulfate [Duoneb] Med 11/01/17 14:00 Discontinued 3 ml NEB .STK-MED ONE Ipratropium/Albuterol Sulfate [Duoneb] Med 11/01/17 13:59 Discontinued 3 ml NEB NOW ONE methylPREDNISolone SOD SUCC [Solu-MEDROL] Med 11/01/17 14:10 Once 125 mg IVP NOW ONE General Adult Physical Exam - PHYSICAL EXAM GENERAL APPEARANCE: moderate distress EENT: eye inspection normal, ENT inspection normal (many absent teeth), pharynx normal NECK: normal inspection, supple RESPIRATORY: wheezes (initially moving very little air) CVS: reg rate & rhythm, heart sounds normal, no murmur BACK: normal inspection SKIN: warm/dry, normal color EXTREMITIES: normal range of motion (gait and stance), no evidence of injury NEURO: CN's nml as tested, motor nml, sensation nml, cognition normal Discharge Clincal Impression: Bronchitis COPD (chronic obstructive pulmonary disease) Qualifiers: COPD type: COPD with acute exacerbation Qualified Code(s): J44.1 - Chronic obstructive pulmonary disease with (acute) exacerbation Prescriptions: Azithromycin [Zithromax] 250 mg PO DAILY #6 tablet Ipratropium/Albuterol Sulfate [Duoneb] 3 ml NEB Q6H #100 ampul.neb predniSONE [Deltasone] 40 mg PO QD #10 tablet Referrals: Aye Lange MD [Primary Care Provider] - 2 Days Additional Instructions: Make an appointment to see Sarita Nowak in the next 5-6 days. One of yoru kidney function tests was elevated. Avoid all smoke. Please stop smoking. Your prescriptions are at [facility]. Condition: Good Disposition: 01 HOME, SELF-CARE Decision to Admit: NO Decision Time: 15:50
[2017-11-01 14:30] LABS: BASOPHILS % 0.6 (0.0-1.5); EOSINOPHILS % 2.9 % (0.0-6.8); MEAN CORPUSCULAR HEMOGLOBIN 29.8 pg (28.0-34.0); MEAN CORPUSCULAR VOLUME 90.7 fl (80.0-100.0); MONOCYTES % 2.9 % (0.0-11.0); NEUTROPHILS # 4.3 # k/uL (1.4-7.7)
[2017-11-01 14:53] LABS: eGFR (African) > 60; eGFR (Non-African) 56
[2017-11-01] MEDS ORDERED: 0.9 % SODIUM CHLORIDE 1,000 ML IV ONE (14:57)
[2017-11-01 16:09] VITALS: BP 144/79
--- NOTE | 2017-11-01 16:18 | Diagnostic Imaging Report ---
SAMMY MCKEON [facility] [id number] On License Of [facility] [address] [address] Report Submission Date: November 01, 2017 2:59:31 PM CDT Patient Study Name: CHI GRAHAM Date: November 01, 2017 2:32:00 PM CDT Modality Type: DX Gender: M Description: CHEST : 63 Institution: [facility] Physician: SAMMY MCKEON Examination: PA and lateral chest. History: Evaluate lung mccord. SOA; WHEEZINSOA; WHEEZING X 2 DAYS; ITCHY RED RASH STARTED 1 DAY AGO (Hx) Comparison exam: 06 September 2016 Findings: PA lateral chest demonstrate a normal cardiac and mediastinal silhouette. Stable prominent hilar vasculature. No focal infiltrate. No blunting of the costophrenic margins. Osseous structures are appropriate for age. Impression: No acute appearing pulmonary process. Electronically signed on November 01, 2017 2:59:31 PM CDT by: Joe SCHULER
== END 2017-11-01 16:07 | disposition home or self-care (01) ==
LOC: ED 13:51
DX: J40 Bronchitis, not specified as acute or chronic (principal); J44.1 Chronic obstructive pulmonary disease with (acute) exacerbation
CPT/HCPCS: 71046; 80053; 85025; J2930; J7030; J7626; 94640; 96374; 99285; S1016

== ENCOUNTER 2017-11-03 06:53 | Emergency (ER) | payer MEDICARE, OTHER ==
[2017-11-03] MEDS ORDERED: ALBUTEROL SULFATE 2.5 MG/3 ML AMPUL.NEB NEB ONE (07:00)
[2017-11-03] MEDS ORDERED: IPRATROPIUM/ALBUTEROL SULFATE 3 ML AMPUL.NEB NEB STA (07:03)
[2017-11-03] MEDS ORDERED: FAMOTIDINE/PF 20 MG/2 ML VIAL IVP ONE (07:11)
[2017-11-03] MEDS ORDERED: diphenhydrAMINE HCL 50 MG/ML VIAL IVP ONE (07:11)
[2017-11-03] MEDS ORDERED: methylPREDNISolone SOD SUCC 125 MG/2 ML VIAL IVP ONE (07:24)
[2017-11-03] MEDS ORDERED: methylPREDNISolone SOD SUCC 125 MG/2 ML VIAL ONE (07:24)
[2017-11-03 07:29] LABS: eGFR (African) > 60; eGFR (Non-African) > 60
[2017-11-03] MEDS ORDERED: LEVALBUTEROL HCL 1.25 MG/3 ML AMPUL.NEB NEB ONE ×2 (08:12→08:14)
--- NOTE | 2017-11-03 08:15 | ED Physician Documentation ---
Wheezing - HISTORIAN Historian: patient, spouse - HPI Stated Complaint: 98.2 Chief Complaint: Wheezing Onset: hours Duration: worse Associated Symptoms:: trouble breathing, shortness of breath, productive cough, other (dyspnea with exerction. ). denies: fever, sweating, hurts to breath, bloody sputum, chest discomfort, chest pain, chest pressure, chest tightness, constant, chills, right, lower, pressure, tightness, intermittent Further Comments: yes (52 year old male patient presents with hives over entire body and wheezing. Albuterol neb started on arrival, RA Sat 85-86%. RR 30-32, mildly labored. Able to speak in 2-3 word sentences. Patient was seen on Friday in ER with cough, wheezing and mild rash. Discharged with prednisone, azithromycin and nebulizer. Patient unsure of source for hives. Patient reports buying a new comfortor recently. states they often alternate laundry detergent between Tide and Gain.) - ROS CONST: recent illness (11/01 - seen in Er) EYES/ENT: denies: eye redness, eye itching, sore throat, runny nose, other CVS: denies: heart racing, palpitations, other GI/: none MS/SKIN/LYMPH: rash (now over trunk and all extremities) NEURO/PSYCH: denies: headache, dizziness, light-headedness, anxiety, tingling hands, muscle spasms hands, tingling face, muscle spasms face, other - PAST HX Asthma: occasional attacks Lung Disease: asthma Other History: hypertension, other (gout, ) Allergies/Adverse Reactions: Allergies Allergy/AdvReac Type Severity Reaction Status Date / Time No Known Allergies Allergy Verified 11/03/17 07:05 Home Medications: Ambulatory Orders Medication Instructions Recorded Metformin HCl [GLUCOPHAGE] 500 mg PO BID 07/26/12 Fenofibrate [Fenofibrate] 145 mg PO DAILY 09/21/13 Albuterol Sulfate [Proair HFA] 1 unit INH DIRECTED 09/17/14 Montelukast Sodium [Singulair] 1 tab PO DAILY 09/17/14 Allopurinol [Zyloprim] 450 mg PO DAILY u2 07/11/15 Fluticasone/Salmeterol [Advair 1 each IH BID 07/11/15 500-50 Diskus] Gabapentin [Neurontin] 300 mg PO TID 01/19/16 Omeprazole [Prilosec] 40 mg PO D 01/19/16 Azithromycin [Zithromax] 250 mg PO DAILY #6 tablet 11/01/17 Ipratropium/Albuterol Sulfate 3 ml NEB Q6H #100 ampul.neb 11/01/17 [Duoneb] predniSONE [Deltasone] 40 mg PO QD #10 tablet 11/01/17 Lisinopril [Zestril] 40 mg PO DAILY 11/03/17 - SOCIAL HX Smoking History: cigarettes - FAMILY HX Family History: denies: other - VITAL SIGNS Vital Signs: Vital Signs Temp Pulse Resp BP Pulse Ox 98.4 F 96 H 34 H 172/89 97 11/03/17 06:53 11/03/17 08:03 11/03/17 06:53 11/03/17 06:53 11/03/17 08:03 - REVIEWED ASSESSMENTS Nursing Assessment Reviewed: Yes Vitals Reviewed: Yes Wheezing Physical Exam - EXAM General Appearance: severe distress EENT: eye inspection normal, ENT inspection normal, pharynx normal, no signs of dehydration, ABNER, no nystagmus, TM's nml Respiratory: no pain on inspiration, accessory muscle use, wheezes (inspiratory and expiratory; ), other (no stridor. 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 Hr 120's, BP 190/100 - will not progress with subq Epi at this time unless patient's status worsens. Sat up to 99% with 4L NC. 0800 RR down to 24-28; able to speak in full sentences; continued expiratory wheezes. Xopenix neb ordered. 0845 Discussed plan of care options with patient. Admission verses transfer. Patient with minimal improvement after benadryl, solumedrol, multiple nebulizers , pepcid and loratadine. Will likely need 2-3 day inpatient stay. Patient prefers transfers to [facility]. Now with mild stridor noted 0900 Reviewed radiology report, will not progress with CT. Patient improving with current treatment. [address] Ibarra; discussed giving morning BP medications - orders to hold. 174/107, HR 114. Patient accepted to [facility] - step down unit. ED Results Lab/Radiology - Lab Results Lab Results: Lab Results 11/03/17 11/03/17 11/03/17 07:10 07:10 07:10 WBC 7.90 K/ul K/ul (4.00-12.00) RBC 4.65 M/ul M/ul (3.90-5.20) Hgb 13.9 g/dL g/dL (12.0-18.0) Hct 42.1 % % (37.0-53.0) MCV 90.5 fl fl (80.0-100.0) MCH 29.9 pg pg (28.0-34.0) MCHC 33.1 g/dL g/dL (30.0-36.0) RDW 14.9 % H % (11.3-14.3) Plt Count 253 K/mm3 K/mm3 (130-400) Neut % (Auto) Shoe Designer Lymph % (Auto) Shoe Designer [place] % (Auto) Shoe Designer Eos % (Auto) Shoe Designer Baso % (Auto) Shoe Designer Neut # (Auto) Shoe Designer Lymph # (Auto) Shoe Designer [place] # (Auto) Shoe Designer Eos # (Auto) Shoe Designer Baso # (Auto) Shoe Designer Seg Neutrophils % 92 % H % (39-79) Lymphocytes % 4 % L % (16-50) Reactive Lymphs % Shoe Designer Monocytes % 4 % % (0-11) Reactive Lymphs # Shoe Designer Plt Morphology Comment Normal (NORMAL) RBC Morph Comment Normal (NORMAL) Sodium 144 mmol/L mmol/L (136-145) Potassium 4.6 mmol/L mmol/L (3.5-5.1) Chloride 99 mmol/L mmol/L (98-107) Carbon Dioxide 34 mmol/L H mmol/L (22-30) BUN 13 mg/dL mg/dL (9-20) Creatinine 1.10 mg/dL mg/dL (0.66-1.25) Estimated Creat Clear 112 Est GFR ( Amer) > 60 (60 - ) Est GFR (Non-Af Amer) > 60 (60 - ) Glucose 143 mg/dL H mg/dL (74-106) Calcium 9.5 mg/dL mg/dL (8.4-10.2) Total Bilirubin 0.3 mg/dL mg/dL (0.2-1.3) AST 107 U/L H U/L (15-46) ALT 54 U/L U/L (13-69) Alkaline Phosphatase 72 U/L U/L (38-126) NT-Pro-B Natriuret Pep 115.0 pg/mL pg/mL (15.0-125.0) Total Protein 9.0 g/dL H g/dL (6.3-8.2) Albumin 4.6 g/dL g/dL (3.5-5.0) - Radiology Radiology Impressions: Examination: PA and lateral chest. History: Evaluate lung mccord. CXR, WHEEZING SINCE SAT. WORSENING TODAY (Hx) Comparison exam: 01 Nov 2017 Findings: PA lateral chest demonstrate a normal cardiac and mediastinal silhouette. Stable prominent hilar vasculature. No focal infiltrate. No blunting of the costophrenic margins. Osseous structures are appropriate for age. Impression: No acute appearing pulmonary process. Given the persistence of symptoms, consider routine high-resolution CT chest if clinically warranted after evaluation by patient's primary physician. Electronically signed on November 03, 2017 9:01:08 AM CDT by: Joe Villarreal - Orders Orders: ED Orders Category Date Time Status Continuous EKG monitoring Q30M Care 11/03/17 07:03 Active Continuous Pulse Oximetry Q30M Care 11/03/17 07:03 Active CHEST 2VIEW [RAD] Stat Exams 11/03/17 07:22 Ordered BNP [NT-proBNP] Stat Lab 11/03/17 07:10 Completed CBC/PLATELET/DIFF Stat Lab 11/03/17 07:10 Completed CMP Stat Lab 11/03/17 07:10 Completed Albuterol Sulfate [Ventolin] Med 11/03/17 07:00 Once 2.5 mg NEB NOW ONE Famotidine/Pf [Pepcid] Med 11/03/17 07:11 Discontinued 20 mg IVP NOW ONE Ipratropium/Albuterol Sulfate [Duoneb] Med 11/03/17 07:03 Discontinued 3 ml NEB STAT STA Levalbuterol HCl [Xopenex] Med 11/03/17 08:12 Once 1.25 mg NEB NOW ONE diphenhydrAMINE HCL [Benadryl] Med 11/03/17 07:11 Discontinued 50 mg IVP NOW ONE methylPREDNISolone SOD SUCC [Solu-MEDROL] Med 11/03/17 07:24 Discontinued 125 mg .ROUTE .STK-MED ONE methylPREDNISolone SOD SUCC [Solu-MEDROL] Med 11/03/17 07:24 Discontinued 125 mg IVP NOW ONE Discharge Clincal Impression: COPD exacerbation, Wheezing, Dyspnea on exertion, Hives of unknown origin Allergic reaction Qualifiers: Encounter type: initial encounter Qualified Code(s): T78.40XA - Allergy, unspecified, initial encounter Referrals: Aye Lange MD [Primary Care Provider] - 2 Days Condition: Serious Disposition: 02 XFER SHT-TRM HOSP Decision to Admit: NO Decision Time: 09:16
[2017-11-03 08:27] LABS: BASOPHILS % 0.3 (0.0-1.5); MEAN CORPUSCULAR HEMOGLOBIN 30.3 pg (28.0-34.0); MEAN CORPUSCULAR VOLUME 90.4 fl (80.0-100.0); MONOCYTES % 2.2 % (0.0-11.0); NEUTROPHILS # 7.3 # k/uL (1.4-7.7)
[2017-11-03] MEDS ORDERED: LORATADINE 10 MG TABLET PO ONE (08:27)
[2017-11-03] MEDS ORDERED: BUDESONIDE 0.5MG/2ML AMPUL.NEB NEB ONE ×2 (08:43→08:44)
[2017-11-03] MEDS ORDERED: RACEPINEPHRINE HCL 1 EACH VIAL.NEB NEB ONE (08:48)
[2017-11-03] MEDS ORDERED: BUDESONIDE 0.5MG/2ML AMPUL.NEB NEB SCH (09:00)
[2017-11-03] MEDS ORDERED: 0.9 % SODIUM CHLORIDE 1,000 ML IV ONE ×2 (09:20→09:22)
[2017-11-03 09:57] VITALS: BP 152/93
--- NOTE | 2017-11-04 06:13 | Diagnostic Imaging Report ---
BREEZY PORTER (DIGITAL MEDIA PLANNER) - ER [facility] [address] [facility] [address] [place], [place]. [address] Report Submission Date: November 03, 2017 9:01:08 AM CDT Patient Study Name: CHI GRAHAM Date: November 03, 2017 8:32:05 AM CDT Modality Type: DX Gender: M Description: CHEST : 63 Institution: [facility] Physician: BREEZY PORTER (DIGITAL MEDIA PLANNER) - ER Examination: PA and lateral chest. History: Evaluate lung mccord. CXR, WHEEZING SINCE SAT. WORSENING TODAY (Hx) Comparison exam: 01 Nov 2017 Findings: PA lateral chest demonstrate a normal cardiac and mediastinal silhouette. Stable prominent hilar vasculature. No focal infiltrate. No blunting of the costophrenic margins. Osseous structures are appropriate for age. Impression: No acute appearing pulmonary process. Given the persistence of symptoms, consider routine high-resolution CT chest if clinically warranted after evaluation by patient's primary physician. Electronically signed on November 03, 2017 9:01:08 AM CDT by: Joe SCHULER
== END 2017-11-03 09:54 | disposition short-term general hospital (02) ==
LOC: ED 06:53
DX: J44.1 Chronic obstructive pulmonary disease with (acute) exacerbation (principal); R06.00 Dyspnea, unspecified; R06.2 Wheezing; T78.40XA Allergy, unspecified, initial encounter; L50.0 Allergic urticaria; X58.XXXA Exposure to other specified factors, initial encounter; Y92.9 Unspecified place or not applicable; Y93.9 Activity, unspecified; Y99.9 Unspecified external cause status
CPT/HCPCS: 71046; 80053; 83605; 83880; 85025; J1200; J2930; J7030; J7614; J7626; 94640; 96374; 96375; 99285; S0028; S1016

== ENCOUNTER 2018-03-26 17:54 | Emergency (ER) | payer MEDICARE, OTHER ==
[2018-03-26 18:08] VITALS: BP 130/81
[2018-03-26] MEDS ORDERED: KETOROLAC TROMETHAMINE 60 MG/2 ML VIAL IM ONE (18:12)
--- NOTE | 2018-03-26 18:26 | ED Physician Documentation ---
General Adult - HISTORIAN Historian: patient - HPI Stated Complaint: Painful Joints Chief Complaint: General Adult Further Comments: yes (52 year old male patient presents with complaint of right wrist pain; denies injury, reports being out of his allopurinol x 3 days. History of gout.) - ROS CONST: no problems EYES/ENT: none CVS/RESP: none GI/: none MS/SKIN/LYMPH: none NEURO/PSYCH: denies: headache, fainting, dizziness, tingling, numbness, difficulty walking, difficulty with speech, anxiety, depression, other - PAST HX Past History: COPD, hypertension Other History: diabetes Type 2, other (GERD; gout, asthma) Allergies/Adverse Reactions: Allergies Allergy/AdvReac Type Severity Reaction Status Date / Time No Known Allergies Allergy Verified 03/26/18 18:08 Home Medications: Ambulatory Orders Medication Instructions Recorded Metformin HCl [GLUCOPHAGE] 500 mg PO BID 07/26/12 Fenofibrate 145 mg PO DAILY 09/21/13 Albuterol Sulfate [Proair HFA] 1 unit INH DIRECTED 09/17/14 Montelukast Sodium [Singulair] 1 tab PO DAILY 09/17/14 Allopurinol [Zyloprim] 450 mg PO DAILY u2 07/11/15 Fluticasone/Salmeterol [Advair 1 each IH BID 07/11/15 500-50 Diskus] Omeprazole [Prilosec] 40 mg PO D 01/19/16 Ipratropium/Albuterol Sulfate 3 ml [facility] Q6H #100 ampul.neb 11/01/17 [Duoneb] Lisinopril [Zestril] 40 mg PO DAILY 11/03/17 - SOCIAL HX Smoking History: cigarettes - FAMILY HX Family History: No - VITAL SIGNS Vital Signs: Vital Signs Temp Pulse Resp BP Pulse Ox 98.6 F 88 15 130/81 94 03/26/18 18:00 03/26/18 18:00 03/26/18 18:00 03/26/18 18:00 03/26/18 18:00 - REVIEWED ASSESSMENTS Nursing Assessment Reviewed: Yes Vitals Reviewed: Yes ED Results Lab/Radiology - Orders Orders: ED Orders Category Date Time Status URIC ACID Stat Lab 03/26/18 Ordered Ketorolac Tromethamine [Toradol] Med 03/26/18 18:12 Discontinued 60 mg IM NOW ONE General Adult Physical Exam - PHYSICAL EXAM GENERAL APPEARANCE: mild distress EENT: eye inspection normal, ABNER RESPIRATORY: no resp distress CVS: reg rate & rhythm, equal pulses SKIN: normal color, warm/dry, NR, INT, PAL, DR EXTREMITIES: non-tender, normal range of motion, no evidence of injury, no edema, other (right wrist with discomfort in scaphoid area; c/o pain with flexion and extension) NEURO: oriented X3, sensation nml, mood/affect nml Discharge Clincal Impression: Gouty arthritis Referrals: Sarita Nowak FNP [Primary Care Provider] - 2 Days Additional Instructions: Your uric acid level (normal 2.0 7.8) was: 4.0 Gout is a painful and potentially debilitating condition that develops in some people who have chronically high blood levels of urate (commonly referred to as uric acid). Elevate and ice the extremity. Can I do anything on my own to prevent gout attacks? Yes. If you are overweight, losing weight can help relieve gout. Plus, you can make changes to your diet that might help prevent future attacks. You should cut down on: Red meat and seafood Alcohol, such as beer, wine, and hard alcohol Foods and drinks that have high-fructose corn syrup (that includes most sodas and store-bought cakes and cookies) Instead, you should eat lots of: Low-fat dairy products, such as low-fat milk, cheese, and yogurt Whole grains and vegetables Condition: Stable Disposition: 01 HOME, SELF-CARE Decision to Admit: NO Decision Time: 18:45
== END 2018-03-26 18:55 | disposition home or self-care (01) ==
LOC: ED 17:54
DX: M10.9 Gout, unspecified (principal); M19.90 Unspecified osteoarthritis, unspecified site
CPT/HCPCS: 84550; J1885; 96372; 99283

== ENCOUNTER 2018-05-14 11:33 | Emergency (ER) | payer MEDICARE, OTHER ==
[2018-05-14 11:45] VITALS: BP 99/46
[2018-05-14] MEDS ORDERED: KETOROLAC TROMETHAMINE 60 MG/2 ML VIAL IM ONE (11:49)
[2018-05-14] MEDS ORDERED: ORPHENADRINE CITRATE 60 MG/2ML IM ONE (11:49)
--- NOTE | 2018-05-14 11:49 | ED Physician Documentation ---
General Adult - HPI Stated Complaint: R clavicle pain Chief Complaint: Chest Pain Onset: days ago (1) Timing: still present Severity: mild Further Comments: yes (He states yesterday he was doing a lot of tasks with pulling boxes and rope and winding it with his right arm. He woke early this am with pain and a "knot" on his right chest/clavicle area. He has pain with movement of right arm in back area. No OTC meds for help of pain. No injury that he is aware of) Last known Well Code/Unknown Code: Unknown - ROS CONST: no problems - PAST HX Past History: hypertension Other History: other (gout ) Immunizations: UTD Allergies/Adverse Reactions: Allergies Allergy/AdvReac Type Severity Reaction Status Date / Time methylprednisolone AdvReac Hives Verified 05/14/18 11:46 [From Depo-Medrol] Home Medications: Ambulatory Orders Medication Instructions Recorded Metformin HCl [GLUCOPHAGE] 500 mg PO BID 07/26/12 Albuterol Sulfate [Proair HFA] 1 unit INH DIRECTED 09/17/14 Montelukast Sodium [Singulair] 1 tab PO DAILY 09/17/14 Allopurinol [Zyloprim] 450 mg PO DAILY u2 07/11/15 Fluticasone/Salmeterol [Advair 1 each IH BID 07/11/15 500-50 Diskus] Omeprazole [Prilosec] 40 mg PO D 01/19/16 Ipratropium/Albuterol Sulfate 3 ml [facility] Q6H #100 ampul.[facility] 11/01/17 [Duoneb] Lisinopril [Zestril] 40 mg PO DAILY 11/03/17 Atorvastatin Calcium [Lipitor] 1 tab PO DAILY 05/14/18 - SOCIAL HX Smoking History: cigarettes Alcohol Use: rarely Drug Use: none - FAMILY HX Family History: No - VITAL SIGNS Vital Signs: Vital Signs Temp Pulse Resp BP Pulse Ox 98.6 F 92 H 16 99/46 95 05/14/18 11:40 05/14/18 11:40 05/14/18 11:40 05/14/18 11:40 05/14/18 11:40 - REVIEWED ASSESSMENTS Nursing Assessment Reviewed: Yes Vitals Reviewed: Yes ED Results Lab/Radiology - Radiology Radiology Impressions: Examination: PA and lateral chest. History: Evaluate lung mccord. RT CLAVICLE AND MID CHEST PAIN WHEN WOKE UP; NO KNOWN INJURY (Hx) Comparison exam: 03 Nov 2017 Findings: PA and lateral views of the chest demonstrates a normal cardiac and mediastinal silhouette. No focal infiltrate. No blunting of the costophrenic margins. Osseous structures are appropriate for age. Impression: No acute pulmonary process. Electronically signed on May 14, 2018 12:42:[address] DRIVER by: Joe Villarreal Examination: Plain film right clavicle. History: RT CLAVICLE AND MID CHEST PAIN WHEN WOKE UP; NO KNOWN INJURY (Hx) Comparison exams: None available. Findings: 2 views of the right clavicle demonstrates normal cortical margins. Acromioclavicular joint degenerative spurring. No other osseous or soft tissue abnormality. Impression: Acromioclavicular joint degenerative changes. Electronically signed on May 14, 2018 12:43:[address] DRIVER by: Joe Villarreal General Adult Physical Exam - PHYSICAL EXAM GENERAL APPEARANCE: no distress EENT: eye inspection normal NECK: normal inspection RESPIRATORY: no resp distress, chest non-tender, breath sounds normal CVS: reg rate & rhythm, heart sounds normal, equal pulses, other (right mid ch est clavicle area mild swelling and pain to touch with palpation ) ABDOMEN: soft BACK: normal inspection, other (pain with palpation right upper back ) SKIN: warm/dry, normal color EXTREMITIES: non-tender, normal range of motion, no evidence of injury, no edema NEURO: oriented X3 Discharge Clincal Impression: Chest pain Qualifiers: Chest pain type: other chest pain Qualified Code(s): R07.89 - Other chest pain Referrals: Sarita Nowak FNP [Primary Care Provider] - 2 Days Additional Instructions: 1. Cyclobenzaprine 10 mg take 1 by mouth every 8 hours as needed for pain 2. Ibuprofen 800 mg take 1 by mouth every 12 hours as needed for pain 3. ice to area 4. Follow up with PCP in 2-4 days 5. Return to ER for any concerns Condition: Stable Disposition: 01 HOME, SELF-CARE Decision to Admit: NO Date of Decison to Admit: 05/14/18 Decision Time: 12:50
[2018-05-14] MEDS ORDERED: ORPHENADRINE CITRATE 60 MG/2ML ONE (11:51)
[2018-05-14] MEDS ORDERED: KETOROLAC TROMETHAMINE 30 MG/1ML VIAL ONE (11:51)
--- NOTE | 2018-05-15 05:06 | Diagnostic Imaging Report ---
BETZAIDA GERMAIN [facility] [address] [facility] [address], [place]. [address] Report Submission Date: May 14, 2018 12:43:39 PM CONSULTANT [employer]. VICE PRESIDENT [employer] (EX ) Patient Study Name: CHI GRAHAM Date: May 14, 2018 12:00:53 PM CONSULTANT [employer] VICE PRESIDENT [employer] (EX ) Modality Type: DX Gender: M Description: SHOULDER : 63 Institution: [facility] Physician: BETZAIDA GERMAIN Examination: Plain film right clavicle. History: RT CLAVICLE AND MID CHEST PAIN WHEN WOKE UP; NO KNOWN INJURY (Hx) Comparison exams: None available. Findings: 2 views of the right clavicle demonstrates normal cortical margins. Acromioclavicular joint degenerative spurring. No other osseous or soft tissue abnormality. Impression: Acromioclavicular joint degenerative changes. Electronically signed on May 14, 2018 12:43:39 PM CONSULTANT [employer] VICE PRESIDENT [employer] (EX ) by: Joe SCHULER
--- NOTE | 2018-05-15 05:07 | Diagnostic Imaging Report ---
BETZAIDA GERMAIN [facility] [place] [facility] [address] [facility] [address] [place], [place]. [address] Report Submission Date: May 14, 2018 12:42:46 PM OUTSIDE [employer] SALES REPRESENTATIVES Patient Study Name: CHI GRAHAM Date: May 14, 2018 11:55:28 AM [employer] REPRESENTATIVES Modality Type: DX Gender: M Description: CHEST : 63 Institution: [facility] [place] [facility] Physician: BETZAIDA GERMAIN Examination: PA and lateral chest. History: Evaluate lung mccord. RT CLAVICLE AND MID CHEST PAIN WHEN WOKE UP; NO KNOWN INJURY (Hx) Comparison exam: 03 Nov 2017 Findings: PA and lateral views of the chest demonstrates a normal cardiac and mediastinal silhouette. No focal infiltrate. No blunting of the costophrenic margins. Osseous structures are appropriate for age. Impression: No acute pulmonary process. Electronically signed on May 14, 2018 12:42:46 PM [employer] REPRESENT[employer]IVES by: Joe SCHULER
== END 2018-05-14 13:12 | disposition home or self-care (01) ==
LOC: ED 11:33
DX: R07.89 Other chest pain (principal)
CPT/HCPCS: 71046; 73000; 96372; 99283; 99284; J1885; J2360

== ENCOUNTER 2019-03-16 09:07 | Emergency (ER) | payer MEDICARE, OTHER ==
[2019-03-16] MEDS ORDERED: IPRATROPIUM/ALBUTEROL SULFATE 3 ML AMPUL.NEB NEB ONE (12:15)
[2019-03-16] MEDS ORDERED: KETOROLAC TROMETHAMINE 30 MG/1ML VIAL ONE (12:15)
[2019-03-16] MEDS ORDERED: MAGNESIUM CITRATE 296 ML BOTTLE PO ONE (12:15)
[2019-03-16] MEDS ORDERED: methylPREDNISolone SOD SUCC 125 MG/2 ML VIAL ONE (12:15)
[2019-03-16] MEDS ORDERED: NORMAL SALINE 1,000 ML IV.SOLN IV ONE (12:15)
[2019-03-25 09:30] LABS: APPEARANCE,URINE CLEAR (CLEAR); COLOR,URINE YELLOW (YELLOW); OCCULT BLOOD,URINE 2+ (NEGATIVE); UROBILINOGEN URINE 0.2 Eu (0.2-1.0)
[2019-03-25 09:32] LABS: BASOPHILS % 0.4 % (0.0-1.5); NEUTROPHILS # 3.8 # k/uL (1.4-7.7); SEGMENTED NEUTROPHILS % 78 % (39-79)
[2019-03-25 09:33] LABS: ANISOCYTOSIS 1+ (NEGATIVE); eGFR (Non-African) 12
--- NOTE | 2019-03-31 09:59 | Diagnostic Imaging Report ---
DEBBIE CARIAS ED [facility] [address] [facility].[address] [address] Report Submission Date: Mar 16, 2019 1:01:28 PM CDT Patient Study Name: CHI GRAHAM Date: Mar 16, 2019 11:47:46 AM CDT Modality Type: US Gender: M Description: ABDOMEN LIMITED- RUQ : 63 Institution: [facility] Physician: DEBBIE CARIAS ED Exam: Right upper quadrant ultrasound. History: Pain. Abnormal CT. Axial images through the right upper quadrant is performed. As was described on CT the gallbladder wall is thickened measuring 5.7 mm in width. The common bile duct measures 4 mm in greatest diameter. The liver measures 16.7 cm in length and is homogeneous in echotexture without space- occupying lesion. The right kidney is of normal size and echotexture without hydronephrosis. No ascites or other abdominal masses are identified. Impression: Thickened gallbladder wall could indicate cholecystitis. Electronically signed on Mar 16, 2019 1:01:28 PM CDT by: Ino SCHULER
--- NOTE | 2019-03-31 10:02 | Diagnostic Imaging Report ---
DEBBIE CARIAS ED [facility] [address] [facility]. [address] [place] [address]. [id number] Report Submission Date: Mar 16, 2019 11:25:34 AM CDT Patient Study Name: CHI GRAHAM Date: Mar 16, 2019 10:52:21 AM CDT Modality Type: CT\SR Gender: M Description: CT ABD/PELVIS RENAL STONE : 63 Institution: [facility] Physician: DEBBIE CARIAS ED CT abdomen and pelvis without contrast History: Hematuria and abdominal pain Technique: Helically acquired images were obtained from the hemidiaphragms to the pelvic floor without IV or oral contrast using a stone protocol Findings: There is a small amount of ascites adjacent to the liver. The liver is mildly enlarged measuring up to 24 mm. The gallbladder appears abnormal. There is apparent gallbladder wall thickening and pericholecystic fluid. Consider right upper quadrant ultrasound. On these images without IV contrast, which limits solid organ evaluation, the pancreas, spleen, adrenal glands and kidneys appear normal. There is no hydronephrosis. No renal or ureteral stones are noted. There is a small amount ascites tracking into the pericolic gutters bilaterally. A structure consistent with a normal appendix is observed. On this nonenhanced study, a component of small bowel mural thickening cannot be excluded involving loops of bowel at the left upper to mid abdomen. Ascites does track into the pelvis. The bladder, seminal vesicles and prostate gland are unremarkable. Moderate degenerative findings of the left hip are present. There is an abnormal lucent area involving the roof of the left acetabulum and extending into the more superior left ilium. This area of lucency measures approximately 3.7 x 1.5 cm in greatest dimension and there is a focal area of associated cortical absence. These findings are of uncertain etiology. There are no relevant comparison studies. Some component of this lucency may represent subchondral cyst formation as there are small subchondral cysts along the roof of the right acetabulum. However, the lucent/lytic area extending more superiorly into the left ilium is atypical. Consider MRI of the pelvis. There is a small focus of subpleural atelectasis at the left lung base. No free air is seen. Impression: There is a small amount of ascites adjacent to the liver as well as a small amount of ascites within the pericolic gutters and extending into the pelvis. The liver is mildly enlarged. The gallbladder appears abnormal with probable mural thickening and pericholecystic fluid. Consider right upper quadrant ultrasound for further assessment of the gallbladder. Additionally, right upper quadrant ultrasound would be helpful for further assessment of the liver and to evaluate portal venous flow. There is possible mural thickening involving loops of small bowel at the upper to mid left abdomen, limitedly assessed on this nonenhanced study. A follow-up CT with both IV and oral contrast would be helpful in this regard. Normal appearing appendix. Abnormality involving the roof of the left acetabulum/left ilium as detailed in the body of the report. Follow-up nonemergent MRI of the bony pelvis would be helpful for further assessment with regard to these abnormal findings. No renal or ureteral stones. Electronically signed on Mar 16, 2019 11:25:34 AM CDT by: Jordyn SCHULER
--- NOTE | 2019-03-31 10:04 | Diagnostic Imaging Report ---
DEBBIE CARIAS ED [facility] [address] [facility] [address] [place], [place]. [address] Report Submission Date: Mar 16, 2019 10:29:13 AM CDT Patient Study Name: CHI GRAHAM Date: Mar 16, 2019 9:37:22 AM CDT Modality Type: DX Gender: M Description: ABDOMEN 1VIEW : 63 Institution: [facility] Physician: DEBBIE CARIAS ED KUB History: Abdominal pain Two supine views of the abdomen demonstrate several loops of abnormally dilated small bowel at the upper to mid left abdomen which are nonspecific. There is no colonic dilatation. No abnormal calcifications are seen. Visualized lung bases are clear. Impression: There are several nonspecific and mildly dilated loops of small bowel at the upper to mid left abdomen. Depending upon the clinical scenario, CT may be of further value. Electronically signed on Mar 16, 2019 10:29:13 AM CDT by: Jordyn SCHULER
== END 2019-03-16 13:30 | disposition home or self-care (01) ==
LOC: ED 09:07
DX: K70.9 Alcoholic liver disease, unspecified (principal); J06.9 Acute upper respiratory infection, unspecified; F17.210 Nicotine dependence, cigarettes, uncomplicated; F10.99 Alcohol use, unspecified with unspecified alcohol-induced disorder; Y90.9 Presence of alcohol in blood, level not specified
CPT/HCPCS: 74018; 74176; 76705; 80053; 81002; 83690; 85025; 94640; 99283; 99284; J1885; J2930; J7030; S1016